=== PATIENT | male | born 1960 | race Caucasian/White ===

== ENCOUNTER 2023-05-31 14:49 | Emergency (ER) | payer SELFPAY ==
[~2023-05-31] VITALS: Ht 177.8 cm; Wt 110.0 kg
[2023-05-31 14:59] VITALS: O2SAT 99
[2023-05-31] MEDS ORDERED: KETOROLAC 30MG/ML VIAL IM ONE (16:00)
[2023-05-31] MEDS ORDERED: IBUP-2029 MT (16:43)
[2023-05-31 17:27] VITALS: BP 128/82; PULSE 66; RESP 18; TEMP 98.7
== END 2023-05-31 17:29 | disposition home or self-care (01) ==
LOC: ER 14:49
DX: R07.81 Pleurodynia (principal)
CPT/HCPCS: 99283; 71101; 96372; J1885

== ENCOUNTER 2023-06-04 12:24 | Emergency (ER) | payer SELFPAY ==
[~2023-06-04] VITALS: Ht 167.6 cm; Wt 91.0 kg
[~2023-06-04 12:24] MED LIST: IBUP-2029 MT
[2023-06-04 12:52] VITALS: O2SAT 97
[2023-06-04 13:32] LABS: BASOPHILS % 0.7 % (0.0-2.0); EOSINOPHILS % 3.7 % (0.0-5.0); HEMATOCRIT. 43.4 % (42.0-52.0); LYMPHOCYTES % 38.6 % (20.0-50.0); MEAN CORPUSCULAR HEMOGLOBIN 30.2 pg (28.0-32.0); MEAN CORPUSCULAR VOLUME 87.4 fL (80.0-94.0); MEAN PLATELET VOLUME 7.4 fl (7.4-10.4); MONOCYTES % 8.1 % (2.0-8.0); NEUTROPHILS % 48.9 % (40.0-76.0); PLATELET 203 x1000/uL (130-400); RED BLOOD CELL COUNT 4.97 mill/uL (4.7-6.1); RED CELL DISTRIBUTION WIDTH 14.6 % (11.6-14.6)
[2023-06-04 13:39] LABS: CHLORIDE 105 mEq/L (98-107)
[2023-06-04 15:29] VITALS: BP 138/84; PULSE 60; RESP 18
[2023-06-04 17:44] LABS: CLARITY URINE CLEAR (CLEAR); COLOR URINE YELLOW (YELLOW); KETONES URINE NEGATIVE (NEGATIVE); LEUKOCYTE ESTERASE URINE NEGATIVE (NEGATIVE); NITRITE URINE NEGATIVE (NEGATIVE); OCCULT BLOOD URINE NEGATIVE (NEGATIVE); PH URINE 5.5 (4.5-8.0); PROTEIN URINE NEGATIVE (NEGATIVE); SPECIFIC GRAVITY URINE 1.013 (1.005-1.030); UROBILINOGEN URINE 0.2 E.U./dL (0.2-1.0)
[2023-06-04 20:00] VITALS: TEMP 98.5
[2023-06-04] MEDS ORDERED: ACETAMINOPHEN 325MG TABLET PO ONE (20:00)
== END 2023-06-04 20:58 | disposition home or self-care (01) ==
LOC: ER 14:22
DX: R07.89 Other chest pain (principal)
CPT/HCPCS: 36415; 80053; 81003; 84484; 85025; 85379; 93005; 99284